=== PATIENT | male | born 1945 | race Caucasian/White ===

== ENCOUNTER → 2017-04-26 | Outpatient (CLI) | payer MEDICARE ==
--- NOTE | ~2017-04-26 | CR63 ---
[facility] A Service of [facility] & [facility] / [facility] RADIOLOGY TEXT RESULTS PATIENT: KELLY PHAN LOCATION: [facility] : 45 UNIT #: [id number] AGE: [address]: ELIZABETH VAUGHN APRN SEX: M ORDER DR: [id number] [facility] [address] [place], [place] [address] [id number] O MR#: [id number] Acc #: [id number] NAME: KELLY PHAN : 1945 SEX: M STUDY DATE/TIME: 04/26/2017 14:50 UNIT: [facility] ROOM: STUDY DESCRIPTION: CR Chest 2 View Attending Physician: Elizabeth Vaughn Ordering Physician: Shaheed Vaughn Aprn MEDICAL IMAGING REPORT This report is preliminary unless electronic signature is present EXAM PA and lateral chest. INDICATIONS Shortness of breath. Cough and congestion for 1 week. Patient also reports right upper back pain. FINDINGS The heart size is within normal limits. Lungs appear clear. Densely calcified structure seen within the left lung of uncertain clinical significance. No aggressive osseous abnormalities are seen and no infiltrates are identified. IMPRESSION Densely calcified structures within the left hemithorax. Clinical significance is uncertain. Please correlate with any prior history of trauma. No acute abnormality is seen. Dictated by... Samantha Potter M.D. THIS IS AN ELECTRONICALLY VERIFIED REPORT Samantha Potter M.D. at 04/28/2017 10:48 AM AFF/ea TD: 04/27/2017 11:50 JOB #: [id number] MEDICAL IMAGING REPORT Page 1 of 1 COPY
== END | disposition home or self-care (01) ==
LOC: CRAD 14:24
DX: R06.02 Shortness of breath (principal); M54.6 Pain in thoracic spine; J98.4 Other disorders of lung
CPT/HCPCS: 71020